=== PATIENT | male | born 1995 | race Hispanic/Latino ===

== ENCOUNTER 2022-10-07 23:19 | Emergency (ER) | payer BC ==
[~2022-10-07] VITALS: Ht 177.8 cm; Wt 82.6 kg
[2022-10-07] MEDS ORDERED: VALA10002 PO (23:45)
[2022-10-07 23:47] VITALS: BP 116/74
== END 2022-10-08 00:04 | disposition home or self-care (01) ==
LOC: EDH 23:19
DX: A60.01 Herpesviral infection of penis (principal)

== ENCOUNTER → 2022-10-18 | Emergency (ER) | payer BC ==
[~2022-10-18] MED LIST: VALA10002 PO
== END ==
LOC: EDH 20:31
DX: Z53.21 Procedure and treatment not carried out due to patient leaving prior to being seen by health care provider (principal)

== ENCOUNTER 2023-09-25 18:26 | Emergency (ER) | payer BC ==
[~2023-09-25] VITALS: Ht 177.8 cm; Wt 83.9 kg
[2023-09-25 19:01] VITALS: BP 129/87; PULSE 89; RESP 20; O2SAT 99
[2023-09-25] MEDS ORDERED: FLUC100T PO (19:34)
== END 2023-09-25 19:58 | disposition home or self-care (01) ==
LOC: EDH 18:26
DX: B35.3 Tinea pedis (principal); Z79.624 Long term (current) use of inhibitors of nucleotide synthesis